=== PATIENT | female | born 2000 ===

== ENCOUNTER 2024-02-09 08:18 | Inpatient (IN) | payer OTHER ==
[2024-02-07 10:51] LABS: HEMOGLOBIN 11.2 g/dL (12.0-15.00); MEAN CELL VOLUME 75.7 fL (80.00-100.00); PLATELET COUNT 420 K/uL (150-450); RED BLOOD COUNT 4.49 M/uL (4.00-6.00); RED CELL DISTRIBUTION WIDTH 15.7 % (11.5-14.5)
[2024-02-07 10:54] LABS: URINE APPEARANCE Clear; URINE BILIRRUBIN Negative (NEGATIVE); URINE BLOOD Negative; URINE COLOR Yellow; URINE GLUCOSE Negative (NEGATIVE); URINE LEUKOCYTE Negative; URINE NITRATE Negative; URINE PROTEIN Negative (NEGATIVE); URINE UROBILINOGEN 0.2 E.U./dl
[2024-02-07 10:55] LABS: URINE BACTERIA 8.8 uL (0.0-1933); URINE EPITHELIAL CELLS 5.2 uL (0.0-38.8); URINE RBC 9.1 uL (0.0-20.8)
[2024-02-07 11:02] LABS: URINE WBC 0.3 uL (0.0-23.2)
[2024-02-07 11:24] LABS: ALBUMIN 3.9 gm/dL (3.4-5.0); BILIRUBIN TOTAL 0.45 mg/dL (0.3-1.2); CALCIUM 9.8 mg/dL (8.5-10.1); CREATININE SERUM 0.69 mg/dL (0.55-1.02); GFR 107.4; GLOBULINA 4.7 G/DL (2.4-3.5); POTASSIUM 4.7 mEq/L (3.5-5.1); TOTAL PROTEIN 8.6 gm/dL (6.4-8.2)
[2024-02-07 11:27] LABS: INR 1.08; PARTIAL THROMBOPLASTIN TIME 28.3 SECONDS (22.0-34.0); PROTHROMBIN TIME 11.3 SECONDS (9.0-11.5)
[~2024-02-09] VITALS: Ht 160 cm; Wt 55.3 kg
[2024-02-09] MEDS ORDERED: POVIDONE-IODINE 118 ML BOTT TOP ONE (12:01)
[2024-02-09] MEDS ORDERED: SURGIFLO APPLICATOR 1 EACH APPL TOP ONE (13:03)
[2024-02-09] MEDS ORDERED: HEMOSTATIC MATRIX 1 KIT KIT TOP ONE (13:18)
[2024-02-09] MEDS ORDERED: VISTASEAL DUAL APPICATOR 1 EACH APPL TOP ONE (13:33)
[2024-02-09] MEDS ORDERED: THROMBIN,HU/FIBRINOGEN/CALCIUM 10 ML SYRINGE TOP ONE (13:33)
[2024-02-09] MEDS ORDERED: LIDOCAINE HCL 1% 20ML VIAL IJ ONE (14:07)
[2024-02-09] MEDS ORDERED: KETOROLAC TROMETHAMINE 30 MG VIAL IV SCH (14:19)
[2024-02-09] MEDS ORDERED: FAMOTIDINE/PF 20 MG/2 ML VIAL IV SCH (14:21)
[2024-02-09] MEDS ORDERED: RINGERS SOLUTION,LACTATED 1,000 ML IV SCH (14:30)
[2024-02-09] MEDS ORDERED: MORPHINE SULFATE 4 MG/ML VIAL IV PRN (14:30)
[2024-02-09] MEDS ORDERED: ONDANSETRON HCL 2 MG/ML VIAL IV PRN (14:30)
[2024-02-09] MEDS ORDERED: ONDANSETRON HCL 2 MG/ML VIAL ONE (15:12)
[2024-02-09] MEDS ORDERED: KETOROLAC TROMETHAMINE 30 MG VIAL ONE (16:02)
[2024-02-09 16:56] LABS: HEMATOCRIT 36.7 % (36.0-45.00); HEMOGLOBIN 11.5 g/dL (12.0-15.00); MEAN CELL VOLUME 77.5 fL (80.00-100.00); MEAN CORPUSCULAR HEMOGLOBIN 24.2 pg (27.00-32.0); MEAN CORPUSCULAR HGB CONC 31.3 g/dl (32.0-36.0); PLATELET COUNT 365 K/uL (150-450); RED BLOOD COUNT 4.74 M/uL (4.00-6.00)
[2024-02-09] MEDS ORDERED: SIMETHICONE 125 MG CAPSULE PO SCH (17:00)
[2024-02-09] MEDS ORDERED: CEFOXITIN SODIUM 2,000 MG VIAL IV SCH (17:00)
[2024-02-09] MEDS ORDERED: CEFOXITIN SODIUM 2,000 MG VIAL IV ONE (19:08)
[2024-02-09] MEDS ORDERED: FAMOTIDINE/PF 20 MG/2 ML VIAL ONE (20:16)
[2024-02-09 22:04] LABS: CALCIUM 8.5 mg/dL (8.5-10.1); CREATININE SERUM 0.81 mg/dL (0.55-1.02); GFR 89.26; POTASSIUM 4.01 mEq/L (3.5-5.1)
[2024-02-10 02:49] LABS: HEMATOCRIT 24.8 % (36.0-45.00); MEAN CELL VOLUME 75.8 fL (80.00-100.00); MEAN CORPUSCULAR HGB CONC 33.3 g/dl (32.0-36.0); PLATELET COUNT 300 K/uL (150-450); RED BLOOD COUNT 3.27 M/uL (4.00-6.00); RED CELL DISTRIBUTION WIDTH 15.5 % (11.5-14.5)
[2024-02-10 02:54] LABS: HEMOGLOBIN 8.3 g/dL (12.0-15.00); MEAN CORPUSCULAR HEMOGLOBIN 25.3 pg (27.00-32.0)
[2024-02-10 03:02] LABS: CREATININE SERUM 0.61 mg/dL (0.55-1.02); GFR 123.81; POTASSIUM 3.81 mEq/L (3.5-5.1)
[2024-02-10] MEDS ORDERED: ACETAMINOPHEN 500 MG GEL..CAP PO NR (08:15)
[2024-02-10] MEDS ORDERED: ACETAMINOPHEN 500 MG GEL..CAP PO PRN (10:30)
[2024-02-10] MEDS ORDERED: OxyCODONE HCL/APAP UD (PERCOCET) PO PRN (10:30)
[2024-02-10 11:36] LABS: HEMATOCRIT 23.8 % (36.0-45.00); MEAN CELL VOLUME 75.9 fL (80.00-100.00); MEAN CORPUSCULAR HEMOGLOBIN 25.1 pg (27.00-32.0); MEAN CORPUSCULAR HGB CONC 33.1 g/dl (32.0-36.0); PLATELET COUNT 287 K/uL (150-450); RED BLOOD COUNT 3.14 M/uL (4.00-6.00); RED CELL DISTRIBUTION WIDTH 15.5 % (11.5-14.5)
[2024-02-10 11:56] LABS: HEMOGLOBIN 7.9 g/dL (12.0-15.00)
[2024-02-10] MEDS ORDERED: GABAPENTIN 100 MG CAPSULE PO ONE (23:15)
[2024-02-11 02:38] LABS: HEMATOCRIT 27.7 % (36.0-45.00); HEMOGLOBIN 9.3 g/dL (12.0-15.00); MEAN CELL VOLUME 79.2 fL (80.00-100.00); MEAN CORPUSCULAR HEMOGLOBIN 26.4 pg (27.00-32.0); MEAN CORPUSCULAR HGB CONC 33.4 g/dl (32.0-36.0); PLATELET COUNT 286 K/uL (150-450); RED CELL DISTRIBUTION WIDTH 17.1 % (11.5-14.5)
== END 2024-02-11 13:25 | disposition home or self-care (01) | DRG 743 ==
LOC: CIR.AMB 08:18 → O/R 16:48 → OB/GYN 16:48
PROVIDERS: Obstetrics & Gynecology Gynecologic Oncology; ADMIT Obstetrics & Gynecology; ATTEND Obstetrics & Gynecology
PROC: 0UT24ZZ Resection of Bilateral Ovaries, Percutaneous Endoscopic Approach (ICD-10-PCS; principal; 2024-02-09 15:15)
DX: D27.1 Benign neoplasm of left ovary (principal); D27.0 Benign neoplasm of right ovary; Z20.822 Contact with and (suspected) exposure to COVID-19; N80.399 Endometriosis of the pelvic peritoneum, other specified sites, unspecified depth